=== PATIENT | male | born 1955 | race Caucasian/White ===

== ENCOUNTER 2019-05-17 19:48 | Emergency (ER) | payer BC ==
[~2019-05-17] VITALS: Ht 177.8 cm; Wt 93.0 kg
[~2019-05-17 19:48] MED LIST: ALPRAZOLAM0.5 M1 PO; ASPIRIN81 MG PO; BENADRYL25 M1 PO; BENAZEPRIL HCL20 MG PO; CLOPIDOGREL75 MG PO; DYMISTA NASAL S23 GM NS; L-LYSINE500 M1 PO; LORATADINE10 MG PO; MULTI-VITAMIN1 EACH PO; PRAVASTATIN SOD20 MG PO; TIZANIDINE HCL4 M1 PO; TYLENOL WITH C1 EACH PO; VITAMIN C PO; ZOLPIDEM TARTRA10 MG PO
[2019-05-17] MEDS ORDERED: PANTOPRAZOLE 40 MG 10ML VIAL IV NR (20:06)
[2019-05-17] MEDS ORDERED: KETOROLAC TROMETHAMINE 30 MG/ML VIAL IV NR (20:06)
[2019-05-17] MEDS ORDERED: SODIUM CHLORIDE 0.9% 1000ML 1,000 ML IV STA (20:06)
[2019-05-17] MEDS ORDERED: VERAPAMIL ER120 MG PO (20:16)
[2019-05-17] MEDS ORDERED: KETOROLAC TROMETHAMINE 30 MG/ML VIAL ONE (20:22)
[2019-05-17] MEDS ORDERED: ONDANSETRON HCL INJ 2MG/ML 2ML 2 MG/ML VIAL ONE (20:23)
[2019-05-17] MEDS ORDERED: PANTOPRAZOLE 40 MG 10ML VIAL ONE (20:23)
[2019-05-17 20:25] LABS: BASOPHILS % 0.3 % (0.0-1.0); EOSINOPHILS # (AUTO) 0.2 (0.0-0.4); EOSINOPHILS % 2.7 % (0.0-6.0); HEMOGLOBIN 16.7 g/dL (14.0-18.0); LYMPHOCYTES % 22.2 % (18.0-39.1); MEAN CORPUSCULAR HEMOGLOBIN 31.5 pg (28-32); MEAN CORPUSCULAR HGB CONC 35.5 g/dL (31-35); MEAN CORPUSCULAR VOLUME 88.7 fL (81-99); MONOCYTES # (AUTO) 0.7 (0.2-0.8); NEUTROPHILS # (AUTO) 5.9 (2.1-6.9); NEUTROPHILS % 66.5 % (38.7-80.0); PLATELET COUNT 258 x10e3/uL (140-360); RED CELL DISTRIBUTION WIDTH 12.8 % (11.7-14.4)
[2019-05-17 20:44] LABS: ALANINE AMINOTRANSFERASE 26 IU/L (0-55); ALBUMIN 3.4 g/dL (3.5-5.0); ALBUMIN/GLOBULIN RATIO 1.1 (0.8-2.0); ALKALINE PHOSPHATASE 45 IU/L (40-150); BLOOD UREA NITROGEN 18 mg/dL (7-26); BUN/CREATININE RATIO 14 (6-25); CALCIUM 8.9 mg/dL (8.4-10.2); CARBON DIOXIDE 20 mmol/L (22-29); CHLORIDE 106 mmol/L (98-107); CREATINE KINASE 331 IU/L (30-200); CREATININE, SERUM 1.31 mg/dL (0.72-1.25); EST GLOMERULAR FILTRATION RATE 55 ML/MIN (60-); GLUCOSE 101 mg/dL (74-118); LIPASE 37 U/L (8-78); SODIUM 135 mmol/L (136-145)
--- NOTE | 2019-05-17 20:45 | Diagnostic Imaging Report ---
EXAMINATION: CHEST SINGLE (PORTABLE) INDICATION: Pain. COMPARISON: None FINDINGS: TUBES and LINES: None. LUNGS: Lungs are well inflated. Lungs are clear. There is no evidence of pneumonia or pulmonary edema. PLEURA: No pleural effusion or pneumothorax. HEART AND MEDIASTINUM: The cardiomediastinal silhouette is unremarkable. BONES AND SOFT TISSUES: No acute osseous lesion. Soft tissues are unremarkable. UPPER ABDOMEN: No free air under the diaphragm. IMPRESSION: No acute thoracic abnormality. Signed by: Dr. Quoc Bowman M.D. on 05/17/2019 8:42 PM
[2019-05-17] MEDS ORDERED: MORPHINE SULFATE INJ 10 MG/ML IV NR (21:15)
[2019-05-17] MEDS ORDERED: ONDANSETRON HCL INJ 2MG/ML 2ML 2 MG/ML VIAL IV NR (21:15)
[2019-05-17 21:23] LABS: BILIRUBIN,URINE NEGATIVE (NEGATIVE); CLARITY,URINE CLEAR (CLEAR); COLOR,URINE YELLOW (YELLOW); KETONES,URINE NEGATIVE (NEGATIVE); LEUKOCYTE ESTERASE ,URINE NEGATIVE (NEGATIVE); NITRITE,URINE NEGATIVE (NEGATIVE); PROTEIN,URINE DIPSTICK NEGATIVE (NEGATIVE); URINE UROBILINOGEN 0.2 mg/dL (0.2 - 1)
[2019-05-17] MEDS ORDERED: MORPHINE SULFATE INJ 4 MG/ML INJ 1ML ONE (21:25)
--- NOTE | 2019-05-17 22:16 | Diagnostic Imaging Report ---
EXAM: Right Upper Quadrant Ultrasound INDICATION: Abdominal pain COMPARISON: None. TECHNIQUE: Transverse and longitudinal images of the right upper abdomen were obtained. Grayscale, color Doppler and spectral waveform analysis of the hepatic vasculature and splenic vein were performed. FINDINGS: Liver: Size: 15.5 cm in the right midclavicular line, normal Appearance: Normal echogenicity, smooth contour Mass: No focal masses Gallbladder: Stones/Sludge: None Wall: 0.2 cm Appearance: No pericholecystic fluid or hydrops. Sonographic Donato's Sign: Negative Bile Ducts: Intrahepatic Ducts: No dilatation Extrahepatic Ducts: Common bile duct measures 0.4 cm, no dilatation Pancreas: The central pancreatic duct diameter is 3.7 mm, slightly dilated. Right Kidney: Size: ... cm Echogenicity: Normal Parenchymal thickness: Normal Collecting system: No hydronephrosis Stones: None Cyst/Mass: None Vessels: Aorta: Normal proximal aorta. Inferior Vena Cava: Visualized portions are normal Main portal vein measures 1.5 cm in diameter, slightly dilated, normal flow direction. Free Fluid: No ascites or pleural effusion IMPRESSION: Nonspecific mild dilation of the main pancreatic duct. Recommend nonemergent contrast enhanced abdominal CT pancreas mass protocol for further evaluation. Signed by: Beau Clayton DO on 05/17/2019 10:12 PM
[2019-05-17] MEDS ORDERED: SODIUM CHLORIDE 0.9% 50ML 50 ML ONE (22:49)
[2019-05-17] MEDS ORDERED: IOPAMIDOL 370 MG/ML 200 ML INFUS..BTL INJ ONE (22:49)
--- NOTE | 2019-05-17 23:10 | Diagnostic Imaging Report ---
EXAM: CT Abdomen and Pelvis WITH contrast INDICATION: ^ABD PAIN COMPARISON: None. TECHNIQUE: Abdomen and pelvis were scanned utilizing a multidetector helical scanner from the lung base to the pubic symphysis after administration of IV contrast. Coronal and sagittal reformations were obtained. Routine protocol was performed. Scan was performed when during portal venous phase. Dose modulation, iterative reconstruction, and/or weight based adjustment of the mA/kV was utilized to reduce the radiation dose to as low as reasonably achievable. IV CONTRAST: 100 mL of Isovue 370 ORAL CONTRAST: None COMPLICATIONS: None FINDINGS: LINES and TUBES: None. LOWER THORAX: Unremarkable HEPATOBILIARY: No focal hepatic lesions. No biliary ductal dilation. GALLBLADDER: No radio-opaque stones or sludge. No wall thickening. SPLEEN: No splenomegaly. PANCREAS: No focal masses. The main pancreatic duct diameter is 0.4 cm in the pancreatic head, minimally dilated. ADRENALS: No adrenal nodules KIDNEYS/URETERS: Kidneys enhance symmetrically. No hydronephrosis. No cystic or solid mass lesions. No stones. GI TRACT: No abnormal distention, wall thickening, or evidence of bowel obstruction. Diverticuli in the distal colon. Appendix is normal. PELVIC ORGANS/BLADDER: Unremarkable. LYMPH NODES: No lymphadenopathy. VESSELS: There is mild atherosclerotic disease in the aorta and major arterial branches. PERITONEUM / RETROPERITONEUM: No free air or fluid. BONES: There are degenerative changes in the lumbar spine. SOFT TISSUES: Unremarkable. IMPRESSION: 1. No acute CT abnormalities in the abdomen or pelvis. 2. Colonic diverticulosis without diverticulitis. 3. Minimal dilation of the pancreatic duct in the pancreatic head without evidence of pancreatic mass, doubtful clinical significance. Signed by: Beau Clayton DO on 05/17/2019 11:07 PM
[2019-05-17] MEDS ORDERED: DIAZEPAM 2 MG TAB PO ONE (23:30)
[2019-05-17] MEDS ORDERED: ULTRAM50 MG PO (23:39)
[2019-05-17] MEDS ORDERED: ROBAXIN-750750 MG PO (23:39)
[2019-05-17] MEDS ORDERED: LIDOCAINE 5% PATCH TP ONE (23:42)
[2019-05-17] MEDS ORDERED: DIAZEPAM 5 MG TAB ONE (23:42)
[2019-05-18 00:46] VITALS: BP 144/87
[2019-05-18] MEDS ORDERED: LIDOCAINE 5% PATCH TP SCH (09:00)
== END 2019-05-18 00:53 | disposition home or self-care (01) ==
LOC: ER 19:48
DX: R10.11 Right upper quadrant pain (principal); R07.89 Other chest pain
CPT/HCPCS: 36415; 71045; 74177; 76705; 80053; 81001; 82550; 82553; 83690; 84484; 85025; 93005; 99284; C9113; J1885; J2270; J2405; J7030; Q9967

== ENCOUNTER → 2019-06-11 | Day surgery (SDC) | payer BC ==
[~2019-06-11] MED LIST changes: +FENTANYL CITRATE/PF 100MCG/2 ML INJ ONE; +HYOSCYAMINE 0.125 MG TAB ONE; +MIDAZOLAM HCL 5MG/ML 2ML VIAL ONE; +PROPOFOL IV EMULSION 10 MG/ML 50 ML VIAL ONE; +ROBAXIN-750750 MG PO; +ULTRAM50 MG PO; +VERAPAMIL ER120 MG PO
--- OUTSIDE RECORDS SUMMARY | 2019-06-11 06:16 | XMS REPORT ---
Author Author [facility] Address Unknown Phone Unavailable Care Team Providers Care Forest Engineer Name Role Phone Salina WILLIAMSON Unavailable Unavailable Problems This patient has no known problems. Allergies, Adverse Reactions, Alerts This patient has no known allergies or adverse reactions. Medications This patient has no known medications. Results Test Description Test Time Test Comments Text Results Atomic Results Result Comments CT ABDOMEN/PELVIS W 2019-05-17 22:58:00 [facility] [address] [id number] Patient Name: JONAH AYOUB MR #: [id number] : 1955 Age/Sex: 64/M Req #: [id number] Adm Physician: Ordered by: JAH WILLIAMSON MD Report #: [id number] Location: ER Room/Bed: Procedure: [id number] CT/CT ABDOMEN/PELVIS W Exam Date: Exam Time: REPORT STATUS: Signed EXAM: CT Abdomen and Pelvis WITH contrast INDICATION: ABD PAIN COMPARISON: None. TECHNIQUE: Abdomen and pelvis were scanned utilizing a multidetector helical scanner from the lung base to the pubic symphysis after administration of IV contrast. Coronal and sagittal reformations were obtained. Routine protocol was performed. Scan was performed when during portal venous phase. Dose modulation, iterative reconstruction, and/or weight based adjustment of the mA/kV was utilized to reduce the radiation dose to as low as reasonably achievable. IV CONTRAST: 100 mL of Isovue 370 ORAL CONTRAST: None COMPLICATIONS: None FINDINGS: LINES and TUBES: None. LOWER THORAX: Unremarkable HEPATOBILIARY: No focal hepatic lesions. No biliary ductal dilation. GALLBLADDER: No radio-opaque stones or sludge. No wall thickening. SPLEEN: No splenomegaly. PANCREAS: No focal masses. The main pancreatic duct diameter is 0.4 cm in the pancreatic head, minimally dilated. ADRENALS: No adrenal nodules KIDNEYS/URETERS: Kidneys enhance symmetrically. No hydronephrosis. No cystic or solid mass lesions. No stones. GI TRACT: No abnormal distention, wall thickening, or evidence of bowel obstruction. Diverticuli in the distal colon. Appendix is normal. PELVIC ORGANS/BLADDER: Unremarkable. LYMPH NODES: No lymphadenopathy. VESSELS: There is mild atherosclerotic disease in the aorta and major arterial branches. PERITONEUM / RETROPERITONEUM: No free air or fluid. BONES: There are degenerative changes in the lumbar spine. SOFT TISSUES: Un remarkable. IMPRESSION: 1. No acute CT abnormalities in the abdomen or pelvis. 2. Colonic diverticulosis without diverticulitis. 3. Minimal dilation of the pancreatic duct in the pancreatic head without evidence of pancreatic mass, doubtful clinical significance. Signed by: Beau Clayton DO on 05/17/2019 11:07 PM Dictated By: BEAU CLAYTON DO 06 Transcribed By: BENNETT on 05/17/192306 COPY TO: JAH WILLIAMSON MD GALLBLADDER 2019-05-17 22:05:00 [address] [address] Patient Name: JONAH AYOUB MR #: [id number] : 1955 Age/Sex: 64/M Req #: [id number] Adm Physician: Ordered by: JAH WILLIAMSON MD Report #: [id number] Location: ER Room/Bed: Procedure: [id number] US/US GALLBLADDER Exam Date: Exam Time: REPORT STATUS: Signed EXAM: Right Upper Quadrant Ultrasound INDICATION: Abdominal pain COMPARISON: None. TECHNIQUE: Transverse and longitudinal images of the right upper abdomen were obtained. Grayscale, color Doppler and spectral waveform analysis of the hepatic vasculature and splenic vein were performed. FINDINGS: Liver: Size: 15.5 cm in the right midclavicular line, normal Appearance: Normal echogenicity, smooth contour Mass: No focal masses Gallbladder: Stones/Sludge: None Wall: 0.2 cm Appearance: No pericholecystic fluid or hydrops. Sonographic Donato's Sign: Negative Bile Ducts: Intrahepatic Ducts: No dilatation Extrahepatic Ducts: Common bile duct measures 0.4 cm, no dilatation Pancreas: The central pancreatic duct diameter is 3.7 mm, slightly dilated. Right Kidney: Size: ... cm Echogenicity: Normal Parenchymal thickness: Normal Collecting system: No hydronephrosis Stones: None Cyst/Mass: None Vessels: Aorta: Normal proximal aorta. Inferior Vena Cava: Visualized portions are normal Main portal vein measures 1.5 cm in diameter, slightly dilated, normal flow direction. Free Fluid: No ascites or pleural effusion IMPRESSION: Nonspecific mild dilation of the main pancreatic duct. Recommend nonemergent contrast enhanced abdominal CT pancreas mass protocol for further evaluation. Signed by: Beau Clayton DO on 05/17/2019 10:12 PM Dictated By: BEAU CLAYTON DO 11 Transcribed By: BENNETT on 05/17/192211 COPY TO: JAH WILLIAMSON MD CHEST SINGLE (PORTABLE) 2019-05-17 20:41:00 [address] [address] Patient Name: JONAH AYOUB MR #: [id number] : 1955 Age/Sex: 64/M Req #: [id number] Adm Physician: Ordered by: JAH WILLIAMSON MD Report #: [id number] Location: ER Room/Bed: Procedure: [id number] DX/CHEST SINGLE (PORTABLE) Exam Date: 05/17/19 Exam Time: 2019 REPORT STATUS: Signed EXAMINATION: CHEST SINGLE (PORTABLE) I NDICATION: Pain. COMPARISON: None FINDINGS: TUBES and LINES: None. LUNGS: Lungs are well inflated. Lungs are clear. There is no evidence of pneumonia or pulmonary edema. PLEURA: No pleural effusion or pneumothorax. HEART AND MEDIASTINUM: The cardiomediastinal silhouette is unremarkable. BONES AND SOFT TISSUES: No acute osseous lesion. Soft tissues are unremarkable. UPPER ABDOMEN: No free air under the diaphragm. IMPRESSION: No acute thoracic abnormality. Signed by: Dr. Quoc Farley M.D. on 05/17/2019 8:42 PM Dictated By: THADDEUS FARLEY MD, MD 41 Transcribed By: BENNETT on 05/17/192041 COPY TO: JAH WILLIAMSON MD
[2019-06-11 09:05] VITALS: BP 126/82
--- NOTE | 2019-06-11 09:43 | Operative Report ---
DATE OF PROCEDURE: 06/11/2019 SURGEON: Jeevan Snell MD PROCEDURE: Colonoscopy with polypectomy. INDICATIONS FOR COLONOSCOPY: Surveillance colonoscopy, personal history of colon polyps. MEDICATIONS: The patient was done under MAC, please see anesthesiologist's note. PROCEDURE IN DETAIL: With the patient in left lateral decubitus position, a flexible fiberoptic Olympus colonoscope was inserted into the rectum with ease and advanced all the way to the cecum. One polyp was removed in the cecum per hot snare polypectomy. An additional polyp in the proximal ascending colon was also removed per hot snare polypectomy and site was hemoclipped. One minute polyp in the distal ascending colon was removed per hot biopsy forceps. The transverse and descending grossly other than for some patchy erythema appeared to be within normal limits. There was some diverticular disease noted in the sigmoid colon. The mucosa revealed some patchy intense erythema and moderate edema in the sigmoid colon and biopsies were obtained. The rectum appeared to be within normal limits. The scope was then retroflexed into the distal rectum and small internal hemorrhoids were noted, none of which was actively bleeding. 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 The scope was subsequently withdrawn. The patient tolerated procedure well. IMPRESSION: 1. Cecal polyp, hot snared. 2. Ascending colon polyps x2, one hot snared and site hemoclipped and one hot biopsied. 3. Diverticulosis. 4. Mild segmental colitis, sigmoid colon. 5. Internal hemorrhoids, none actively bleeding. PLAN: Follow up histology. Initiate high-fiber, low-fat diet. Initiate high-fiber supplement. The patient might benefit from a followup colonoscopy in 3 to 5 years. MD JAYSHREE Hemphill/RONAN /[id number] cc: Marco Mahajan MD
== END | disposition home or self-care (01) ==
LOC: OR 06:00
PROVIDERS: ATTEND Internal Medicine Gastroenterology
DX: Z12.11 Encounter for screening for malignant neoplasm of colon (principal); Z86.010 Personal history of colon polyps; K57.30 Diverticulosis of large intestine without perforation or abscess without bleeding; K52.89 Other specified noninfective gastroenteritis and colitis; K64.8 Other hemorrhoids; D12.2 Benign neoplasm of ascending colon; D12.0 Benign neoplasm of cecum; I10 Essential (primary) hypertension; I25.10 Atherosclerotic heart disease of native coronary artery without angina pectoris
CPT/HCPCS: 45384; 45385; J2250; J2704; J3010; 45378; 45380